=== PATIENT | female | born 1955 | race Caucasian/White ===

== ENCOUNTER → 2018-06-28 | Outpatient (CLI) | payer OTHER | LOC: M.RAD 10:24 | DX: M25.572 Pain in left ankle and joints of left foot (principal); G89.29 Other chronic pain ==

== ENCOUNTER → 2018-08-26 | Outpatient (CLI) | payer OTHER | LOC: M.MRI 14:03 | DX: M71.572 Other bursitis, not elsewhere classified, left ankle and foot (principal); E78.5 Hyperlipidemia, unspecified; M19.90 Unspecified osteoarthritis, unspecified site; M81.0 Age-related osteoporosis without current pathological fracture; E03.9 Hypothyroidism, unspecified; K21.9 Gastro-esophageal reflux disease without esophagitis; Z88.2 Allergy status to sulfonamides; Z85.828 Personal history of other malignant neoplasm of skin ==

== ENCOUNTER → 2019-02-06 | Outpatient (CLI) | payer MEDICARE, OTHER | LOC: M.RAD 13:13 | DX: Z12.31 Encounter for screening mammogram for malignant neoplasm of breast (principal); Z13.820 Encounter for screening for osteoporosis; M85.89 Other specified disorders of bone density and structure, multiple sites; Z88.2 Allergy status to sulfonamides; Z78.0 Asymptomatic menopausal state ==

== ENCOUNTER → 2020-05-10 | Outpatient (CLI) | payer MEDICARE, OTHER ==
[2020-05-10 12:09] LABS: HEMOGLOBIN 12.8 gm/dL (12.0-15.0); MCH 28.9 pg (26.0-34.0); MCHC 33.6 g/dL (28.0-37.0); MPV 6.4 fl. (7.2-11.1); RBC 4.42 mil/uL (4.20-5.00); RDW-CV 13.8 % (10.5-14.5); WBC 7.9 thou/uL (4.0-11.0)
== END ==
LOC: M.LAB 11:49
PROVIDERS: ATTEND Orthopaedic Surgery
DX: M25.561 Pain in right knee (principal)

== ENCOUNTER → 2020-05-13 | Outpatient (CLI) | payer MEDICARE, OTHER | LOC: M.CT 09:07 | PROVIDERS: ATTEND Orthopaedic Surgery | DX: M25.462 Effusion, left knee (principal) ==

== ENCOUNTER → 2021-02-20 | Outpatient (CLI) | payer MEDICARE | LOC: M.RAD 02-12 12:56 | PROVIDERS: ATTEND Registered Nurse Diabetes Educator | DX: Z12.31 Encounter for screening mammogram for malignant neoplasm of breast (principal); M81.0 Age-related osteoporosis without current pathological fracture; M85.88 Other specified disorders of bone density and structure, other site; Z78.0 Asymptomatic menopausal state ==

== ENCOUNTER → 2021-06-09 | Outpatient (CLI) | payer MEDICARE | LOC: M.RAD 08:51 | PROVIDERS: ATTEND Internal Medicine | DX: R05.9 Cough, unspecified (principal); K44.9 Diaphragmatic hernia without obstruction or gangrene; R13.10 Dysphagia, unspecified; Z86.16 Personal history of COVID-19 ==